=== PATIENT | female | born 1960 ===

== ENCOUNTER 2019-01-29 19:36 | Emergency (ER) | payer OTHER ==
[2019-01-29 20:28] VITALS: TEMP 98.5
[2019-01-29] MEDS ORDERED: Sodium Chloride 0.9% 1,000 ML IV ONE (20:41)
[2019-01-29 20:53] LABS: BASO % 0.4 % (0.0-2.0); EOS # 0.1 K/uL (0.0-0.7); EOS % 1.2 % (0.0-4.0); HEMOGLOBIN 13.6 g/dL (11.0-16.0); LYMPH % 35.7 % (20.0-40.0); MEAN CELL VOLUME 89.4 fL (81.0-99.0); MEAN CORPUSCULAR HEMOGLOBIN 31.3 pg (27.0-31.0); MEAN PLATELET VOLUME 6.9 fL (7.2-11.7); MONO # 0.6 K/uL (0.0-0.8); MONO % 6.8 % (0.0-10.0); NEUT # 4.7 K/uL (1.8-7.0); NEUT % 55.9 % (50.0-75.0); RBC 4.35 Mil/uL (3.80-5.20); RED CELL DISTRIBUTION WIDTH 12.4 % (11.5-14.5); WHITE BLOOD COUNT 8.4 K/uL (4.8-10.8)
[2019-01-29 21:01] LABS: HCG,QUALITATIVE URINE NEGATIVE (NEGATIVE)
[2019-01-29 21:02] LABS: URINE BACTERIA RARE (<OCC); URINE BILIRUBIN NEGATIVE (NEGATIVE); URINE BLOOD NEGATIVE (NEGATIVE); URINE CLARITY Clear (Clear); URINE COLOR Straw (YELLOW); URINE GLUCOSE (UA) 3+ mg/dL (Normal); URINE LEUKOCYTE ESTERASE NEG Leu/uL (Negative); URINE PROTEIN NEGATIVE (NEGATIVE); URINE UROBILINOGEN NORMAL mg/dL (0.2-1.0)
[2019-01-29 21:07] LABS: ALB/GLOB RATIO 1.5 (1.0-2.1); ALBUMIN 4.2 g/dL (3.5-5.0); ALT/SGPT 24 U/L (9-52); AST/SGOT 25 U/L (14-36); BLOOD UREA NITROGEN 9 mg/dL (7-17); CALCIUM 9.4 mg/dl (8.6-10.4); GFR NON-AFRICAN AMERICAN > 60; LIPASE 109 U/L (23-300)
[2019-01-29] MEDS ORDERED: (Novolin R) Insulin Human Regular 100 units/ml vial IV STA (21:09)
[2019-01-29] MEDS ORDERED: (Novolin R) Insulin Human Regular 100 units/ml vial ONE (21:19)
--- NOTE | 2019-01-29 21:57 | C.PDOC ---
History Of Present Illness 58 year old female presents to the emergency department after being referred by her PMD Dr. Hitesh Masterson after outpatient lab result from yesterday showed Amylase in [address] Masterson is requesting a re-evaluation of the patient as well as a CT scan of the abdomen and pelvis. Patient currently complains of nausea, vomiting, and epigastric pain. <Jaziel Wang - Last Filed: 01/30/19 00:50> History Per: Patient History/Exam Limitations: no limitations Onset/Duration Of Symptoms: Days (1) Current Symptoms Are (Timing): Still Present Location Of Pain/Discomfort: Epigastric Quality Of Discomfort: "Pain" Associated Symptoms: Nausea, Vomiting <Jaziel Wang - Last Filed: 01/30/19 00:50> <Anastasia Lyn - Last Filed: 01/30/19 01:37> Time Seen by Provider: 01/29/19 20:39 Chief Complaint (Nursing): Abdominal Pain Past Medical History Reviewed: Historical Data, Nursing Documentation, Vital Signs Vital Signs: Last Vital Signs Temp 98.5 F 01/29/19 20:23 Pulse 65 01/29/19 20:23 Resp 20 01/29/19 20:23 BP 146/70 01/29/19 20:23 Pulse Ox 97 01/29/19 20:23 - Medical History PMH: Hypercholesterolemia Surgical History: No Surg Hx Family History: States: No Known Family Hx - Social History Hx Alcohol Use: No Hx Substance Use: No - Immunization History Hx Tetanus Toxoid Vaccination: No Hx Influenza Vaccination: No Hx Pneumococcal Vaccination: No <Jaziel Wang - Last Filed: 01/30/19 00:50> Vital Signs: Last Vital Signs Temp 98.5 F 01/29/19 20:23 Pulse 76 01/30/19 01:11 Resp 17 01/30/19 01:11 BP 152/66 H 01/30/19 01:11 Pulse Ox 96 01/30/19 01:11 <Anastasia Lyn - Last Filed: 01/30/19 01:37> Review Of Systems Review Of Systems: ROS cannot be obtained secondary to pt's inabilty to answer questions. Constitutional: Negative for: Fever, Chills Gastrointestinal: Positive for: Nausea, Vomiting, Abdominal Pain. Negative for: Diarrhea <Jaziel Wang Last Filed: 01/30/19 00:50> Physical Exam - Physical Exam Appears: Non-toxic, No Acute Distress, Other (elderly female) Skin: Normal Color, Warm, Dry Head: Atraumatic, Normacephalic Eye(s): bilateral: Normal Inspection, PERRL, EOMI Nose: Normal Oral Mucosa: Moist Neck: Normal, Supple Chest: Symmetrical, No Tenderness Cardiovascular: Rhythm Regular, No Murmur Respiratory: Normal Breath Sounds, No Rales, No Rhonchi, No Wheezing Gastrointestinal/Abdominal: Soft, No Tenderness, No Guarding, No Rebound Extremity: Normal ROM Neurological/Psych: Oriented x3, Normal Speech, Normal Cognition <Jaziel Wang Last Filed: 01/30/19 00:50> ED Course And Treatment - Laboratory Results Result Diagrams: 01/29/19 20:50 01/29/19 20:50 Lab Interpretation: Normal (lipase neg, UA neg.) ECG: Interpreted By Me ECG Rhythm: Sinus Rhythm ECG Interpretation: Normal Rate From EC O2 Sat by Pulse Oximetry: 97 (RA) Pulse Ox Interpretation: Normal - Radiology CXR: Interpreted by Me CXR Interpretation: Yes: No Acute Disease - Other Rad abd x 2 X-Ray: Interpreted by Me (+ large stool) Reevaluation Time: 00:47 Reassessment Condition: Improved (sleeping belly benign) <Jaziel Wang Last Filed: 01/30/19 00:50> - Laboratory Results Result Diagrams: 01/29/19 20:50 01/29/19 20:50 Lab Results: Troponin I < 0.0120 ng/mL (0.00-0.120) 01/29/19 20:50 Total Bilirubin 0.5 mg/dL (0.2-1.3) 01/29/19 20:50 AST 25 U/L (14-36) 01/29/19 20:50 ALT 24 U/L (9-52) 01/29/19 20:50 Alkaline Phosphatase 147 U/L (38-126) H 01/29/19 20:50 Total Protein 7.0 g/dL (6.3-8.3) 01/29/19 20:50 Albumin 4.2 g/dL (3.5-5.0) 01/29/19 20:50 Globulin 2.8 gm/dL (2.2-3.9) 01/29/19 20:50 Albumin/Globulin Ratio 1.5 (1.0-2.1) 01/29/19 20:50 Lipase 109 U/L (23-300) 01/29/19 20:50 Urine Color Straw (YELLOW) 01/29/19 20:52 Urine Clarity Clear (Clear) 01/29/19 20:52 Urine pH 6.0 (5.0-8.0) 01/29/19 20:52 Ur Specific [place] 1.014 (1.003-1.030) 01/29/19 20:52 Urine Protein Negative mg/dL (NEGATIVE) 01/29/19 20:52 Urine Glucose (UA) 3+ mg/dL (Normal) H 01/29/19 20:52 Urine Ketones Negative mg/dL (NEGATIVE) 01/29/19 20:52 Urine Blood Negative (NEGATIVE) 01/29/19 20:52 Urine Nitrate Negative (NEGATIVE) 01/29/19 20:52 Urine Bilirubin Negative (NEGATIVE) 01/29/19 20:52 Urine Urobilinogen Normal mg/dL (0.2-1.0) 01/29/19 20:52 Ur Leukocyte Esterase Neg [place]/uL (Negative) 01/29/19 20:52 Urine WBC (Auto) 1 /hpf (0-5) 01/29/19 20:52 Urine RBC (Auto) < 1 /hpf (0-3) 01/29/19 20:52 Urine Bacteria Rare (<OCC) 01/29/19 20:52 Urine HCG, Qual Negative (NEGATIVE) 01/29/19 20:52 Urine HCG, Qual Negative (NEGATIVE) 01/29/19 20:52 - CT Scan/US CT Abdomen and Pelvis Other Rad Studies (CT/US): Read By Radiologist, Radiology Report Reviewed CT/US Interpretation: IMPRESSION: Bilateral basilar atelectatic pulmonary changes. Uncomplicated colonic diverticulosis. Moderate amount of fecal residue in the large bowel. Diffuse thickening of the bladder. Under distention versus cystitis. <Anastasia Lyn - Last Filed: 01/30/19 01:37> Medical Decision Making Medical Decision Making: Plan: CT Abdomen and Pelvis EKG Chemistry CBC XR Obstructive Series Glucose POC Insulin NaCl IV Fluids Pepcid 20mg IVP Toradol 30mg IVP Zofran 4mg IVP HCG Qualitative Urine Urinalysis consider poorly controlled DM proomoting gastroparesis abd FOS A1C >9 glu > 300 today tranient elevated amylase/lipase yesterday 200's/400's not same today (today wnl) consider passed stone (if seen in GB on CT) or mechanical pressure from stool on pancreas 0100: pending CT results signed over to overnight MD if neg CT d/c home with laxatives <Jaziel Wang - Last Filed: 01/30/19 00:50> Disposition - Disposition Disposition Time: 01:00 <Jaziel Wang - Last Filed: 01/30/19 00:50> <Anastasia Lyn - Last Filed: 01/30/19 01:37> - Disposition Referrals: Jorge Masterson MD [Staff Provider] - Disposition: HOME/ ROUTINE Condition: GOOD Additional Instructions: felicia purgante y re-evalua morales molestial del abdomen despues de usar el shawn 2-3 veces cambios de dieta y ejercisio felicia mas agua purgantes de vez en cuando- si no va al shawn en 2 robles felicia un purgante Aumenta morales regimen de medicamentos para la diabetes para control mejor Aviso aumenta morales Metformina de 500 dos veces al migue hasta 1000 mg dos veces al migue. Instructions: Constipation, Adult (DC) Forms: [employer] (Wolof) Print Language: ARABIC - Clinical Impression Clinical Impression: Abdominal pain, Abdominal pain, colicky - Scribe Statement The provider has reviewed the documentation as recorded by the Scribe (Alberto Durbin) Provider Attestation: All medical record entries made by the Scribe were at my direction and personally dictated by me. I have reviewed the chart and agree that the record accurately reflects my personal performance of the history, physical exam, medical decision making, and the department course for this patient. I have also personally directed, reviewed, and agree with the discharge instructions and disposition. <Jaziel Wang E - Last Filed: 01/30/19 00:50> Physician Patient Turnover Patient Signed Over To: Anastasia Lyn Handoff Comments: f/u CT and dispo appropiately. d/c home with laxatives if CT neg (aside from large colonic stool). if + adm to Hospitalists for Dr. Hitesh Masterson <Jaziel Wang - Last Filed: 01/30/19 00:50>
[2019-01-29] MEDS ORDERED: Iodixanol 320 MG/ML 100 ML BOTTLE IV ONE (23:05)
[2019-01-30] MEDS ORDERED: Magnesium Citrate Oral SOL (300 ml) PO ONE (00:54)
[2019-01-30 01:13] VITALS: BP 152/66; PULSE 76; RESP 17; O2SAT 96
[2019-01-30] MEDS ORDERED: Magnesium Citrate Oral SOL (300 ml) ONE (01:42)
--- NOTE | 2019-01-30 17:57 | CT ---
Date of service: 01/30/2019 PROCEDURE: CT Abdomen and Pelvis with contrast HISTORY: mild pancreatitis COMPARISON: None. TECHNIQUE: Contrast dose: 100 mL Visipaque 320 Radiation dose: Total exam DLP = 1002.91 mGy-cm. This CT exam was performed using one or more of the following dose reduction techniques: Automated exposure control, adjustment of the mA and/or kV according to patient size, and/or use of iterative reconstruction technique. FINDINGS: LOWER THORAX: Unremarkable. LIVER: Unremarkable. No gross lesion or ductal dilatation. GALLBLADDER AND BILE DUCTS: Cholecystectomy PANCREAS: Unremarkable. No gross lesion or ductal dilatation. SPLEEN: Unremarkable. ADRENALS: Unremarkable. No mass. KIDNEYS AND URETERS: Unremarkable. No hydronephrosis. No solid mass. VASCULATURE: Unremarkable. No aortic aneurysm. No aortic atherosclerotic calcification or mural plaque present. BOWEL: Unremarkable. No obstruction. No gross mural thickening. APPENDIX: Not identified. No secondary findings. PERITONEUM: Unremarkable. No free fluid. No free air. LYMPH NODES: Unremarkable. No enlarged lymph nodes. BLADDER: Nondistended REPRODUCTIVE: Unremarkable uterus BONES: No acute fracture. OTHER FINDINGS: None. IMPRESSION: No significant abnormality identified. Status post cholecystectomy. No CT evidence of pancreatitis. The preliminary findings for this examination were reported by [facility] at 1:22 a.m. on 01/30/2019. There is concurrence of this report with the preliminary findings.
--- NOTE | 2019-01-31 15:39 | RAD ---
Date of service: 01/29/2019 PROCEDURE: Radiographs of the chest and abdomen (obstructive series) HISTORY: abd pain COMPARISON: No prior. TECHNIQUE: AP radiograph of the chest, with upright and supine radiographs of the abdomen. FINDINGS: CHEST: Lungs: Poor inspiration with low lung volumes, crowded bronchovascular markings and mild bibasilar atelectasis and or scarring left greater than right. Cardiovascular: Normal size heart. No pulmonary vascular congestion. Minor aortic atherosclerotic calcification present Pleura: No pleural fluid. No pneumothorax. Other findings: None. ABDOMEN AND PELVIS: Bowel: No evidence of mechanical obstruction. Large amount of stool is present throughout the colon consistent with fecal retention/constipation. Free air: None. Bones: Unremarkable. Other findings: . Cholecystectomy clips. IMPRESSION: Poor inspiration with low lung volumes, crowded bronchovascular markings and mild bibasilar atelectasis and or scarring left greater than right. Findings consistent with constipation
--- NOTE | 2019-02-02 21:47 | CARD ---
APPROVED REPORT Date of service: 01/29/2019 EKG Measurement Heart [id number] <Conclusion> Normal sinus rhythm Normal ECG
== END 2019-01-30 01:46 | disposition home or self-care (01) ==
LOC: C.ER 19:36
DX: R10.84 Generalized abdominal pain (principal); E78.00 Pure hypercholesterolemia, unspecified
CPT/HCPCS: 74022; 74177; 80053; 81001; 82948; 83690; 84484; 84703; 85025; 93005; 96374; 96375; 99284; J1885; J2405; J7030; Q9967

== ENCOUNTER 2019-03-09 07:13 | Day surgery (SDC) | payer OTHER ==
[2019-03-08 10:03] VITALS: BMI 29.5
--- NOTE | 2019-03-09 08:25 | CP.SDSHP ---
<Kim Murphy - Last Filed: 03/09/19 08:23> Same Day Surgery H & P - History Proposed Procedure: EGD. Colonoscopy Pre-Op Diagnosis: Bloating. LLQ pain. Colon Cancer screening. gastritis - Previous Medical/Surgical History Endocrine/Metabolic: Diabetes Previous Surgical History: cholecystecomy. Left oopherectomy - Allergies Allergies: Allergies No Known Allergies Allergy (Unverified 03/09/19 07:36) - Current Medications Current Medications: Metformin - Physical Exam General Appearance: no acute distress Vital Signs: Vital Signs 03/09/19 07:35 Temperature 97.3 F L Pulse Rate 67 Respiratory 19 Rate Blood Pressure 136/58 L O2 Sat by Pulse 99 Oximetry Mental Status: Alert & Oriented x3 Neuro: WNL Heart: WNL Lungs: WNL GI: WNL - {Optional Preform as Required} Abdomen: WNL - Impression Impression: Bloating. LLQ pain. Colon Cancer screening. gastritis Pt. Evaluated Today:Candidate for Anesthesia & Procedure: Yes - Date & Time Date: 03/09/19 Time: 07:50 Short Stay Discharge - Short Stay Discharge Admitting Diagnosis/Reason for Visit: ENCOUNTER FOR SCREENING FOR MALIGNANT NEOPLASM OF Disposition: HOME/ ROUTINE <AngelesMeliton - Last Filed: 03/09/19 08:31> Same Day Surgery H & P - Allergies Allergies: Allergies No Known Allergies Allergy (Unverified 03/09/19 07:36) - Physical Exam Vital Signs: Vital Signs 03/09/19 07:35 Temperature 97.3 F L Pulse Rate 67 Respiratory 19 Rate Blood Pressure 136/58 L O2 Sat by Pulse 99 Oximetry Attending/Attestation - Attestation I have personally seen and examined this patient.: Yes I have fully participated in the care of the patient.: Yes I have reviewed all pertinent clinical information: Yes Notes (Text): 03/09/19 08:31 EGD and colonoscopy to be done for refractory H pylori gastritis, weight loss, bloating, LLQ pain and colon cancer screening which has not been done in the past. Risks and benefits discussed and accepted by patient.
[2019-03-09] MEDS ORDERED: Propofol 10 mg/ml Inj (20 ML) ONE (08:34)
[2019-03-09] MEDS ORDERED: Lidocaine Hydrochloride 5 ML INJ ONE (08:35)
[2019-03-09 09:34] VITALS: TEMP 96.8; O2SAT 100
[2019-03-09 10:13] VITALS: RESP 14
[2019-03-09 10:29] VITALS: BP 119/48; PULSE 58
== END 2019-03-09 10:26 | disposition home or self-care (01) ==
LOC: C.ENDO 07:13
PROVIDERS: ATTEND Internal Medicine Gastroenterology
DX: K64.1 Second degree hemorrhoids (principal); Z12.11 Encounter for screening for malignant neoplasm of colon; K21.0 Gastro-esophageal reflux disease with esophagitis; K29.70 Gastritis, unspecified, without bleeding; Z79.84 Long term (current) use of oral hypoglycemic drugs; E11.9 Type 2 diabetes mellitus without complications
CPT/HCPCS: 43239; 45378; 82948; 88305; 88342; J2704